=== PATIENT | male | born 1935 | race Caucasian/White ===

== ENCOUNTER 2019-02-12 12:42 | Outpatient (CLI) | payer MEDICARE ==
--- NOTE | 2019-02-12 15:04 | MRI ---
MR CERVICAL SPINE WITHOUT CONTRAST INDICATION: History of cervical spinal stenosis with extreme neck and back pain for many years TECHNIQUE: Multiplanar multisequence MR images were obtained of the cervical spine without contrast. COMPARISON: None FINDINGS: Posterior fossa: Within normal limits. Bone marrow signal intensity: Normal Spinal alignment: There is straightening of the normal cervical lordosis. Craniocervical junction: Mild degenerative changes but otherwise within normal limits. Prevertebral and perivertebral soft tissues: Visualized soft tissues appear within normal limits. Vertebral levels: C2-C3: There is severe bilateral facet joint degenerative change and moderate left uncovertebral hype rtrophy inducing mild left neural foraminal narrowing. C3-4: There is a broad-based disc osteophyte complex causing mild central canal narrowing and mild ve ntral cord effacement. There is uncovertebral hypertrophy and facet joint degenerative change inducing severe left and moderate to severe right neural foraminal narrowing. At C4-5, there is a broad-based bulge causing mild central canal narrowing and mild ventral effacemen t of the subarachnoid space. There is uncovertebral hypertrophy facet joint degenerative changes inducing moderate to severe left and severe right neural foraminal narrowing. At C5-6, there is a broad-based bulge causing mild central canal narrowing mild ventral effacement sp inal cord. The vertebral hypertrophy and facet joint degenerative changes inducing moderate to severe bilateral neural foraminal narrowing. At C6-C7, there is a mild broad-based bulge causing mild ventral effacement of the subarachnoid space without definite cord contact. There is uncovertebral hypertrophy facet joint degenerative change inducing mild to moderate bilateral neural foraminal narrowing. At C7-T1, there is a right foraminal disc protrusion causing moderate narrowing of the right neural f oramina. 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
--- NOTE | 2019-02-12 15:33 | MRI ---
MRI lumbar spine noncontrast: HISTORY: Back pain times many years. COMPARISON: None FINDINGS: Appropriate T1 marrow signal intensity lumbar vertebra. Lumbar spine vertebral body height is [place]. No fracture. No significant STIR hyperintensity to suggest vertebral body edema or ligamentous injury. 3.9 mm of retrolisthesis of L2 upon L3, 3.2 mm retrolisthesis of L4 upon L5. Symmetric signal intensity of the psoas muscles. Is extensive atrophy of the paraspinal muscles. T2 hyperintensity in the left renal pelvis measuring 4.6 x 4.2 cm. Conus medullaris terminates at the inferior aspect of T12 T12-L1:Adequate disc hydration. No significant central canal stenosis or neural foraminal narrowing L1-L2:Adequate disc hydration. No significant central canal stenosis or neural foraminal narrowing L2-L3:Desiccation with mild loss of disc space height. Generalized disc bulge resulting in mild [place] ening of the thecal sac. Mild central canal stenosis. Neural foramina are patent. L3-L4:Desiccation with mild to moderate loss of disc space height. Generalized disc bulge, ligament f lavum thickening and facet hypertrophy result in mild central canal stenosis. Narrowing of both subarticular zones, left greater than right. Partial obscuration of bilateral traversing L4 nerve marco ts. Mild bilateral neural foraminal narrowing. L4-L5:Moderate to severe loss of disc space height. Generalized disc bulge with encroachment upon bot h subarticular zones. Mass effect without obscuration of bilateral traversing L5 nerve roots. Left greater than right facet hypertrophy. No significant central canal stenosis. Mild to moderate right a nd moderate left neural foraminal narrowing L5-S1:Intrinsic T2 and STIR hyperintense along the posterior half of the disc and may represent annul ar fissure. Minimal associated disc bulge. No significant central canal stenosis. Mild bilateral foraminal narrowing. IMPRESSION: 1. Multilevel neural foraminal narrowing as detailed above. 2. No evidence of high-grade central canal stenosis. However, there is some narrowing of both subarti cular zones at L3-L4 and L4-L5. There is some mass effect upon the associated traversing nerve roots. 3. Probable annular fissure involving the posterior aspect of L5-S1 disc.
== END 2019-02-12 12:43 | disposition home or self-care (01) ==
LOC: SCSMRI 12:42
PROVIDERS: ATTEND Orthopaedic Surgery Hand Surgery
DX: M48.061 Spinal stenosis, lumbar region without neurogenic claudication (principal); M54.16 Radiculopathy, lumbar region; M47.22 Other spondylosis with radiculopathy, cervical region; M48.02 Spinal stenosis, cervical region; M48.07 Spinal stenosis, lumbosacral region; M48.03 Spinal stenosis, cervicothoracic region
CPT/HCPCS: 72141; 72148